=== PATIENT | female | born 1955 | race Caucasian/White ===

== ENCOUNTER → 2016-02-28 | Outpatient (CLI) | payer MEDICARE, OTHER ==
[~2016-02-28] MED LIST: CAR3125T OR; DIGO0.1262 OR; FURO40TA; IOHEXOL 350 MG/ML 100ML IJ ONE; LOSA25TA9 OR; Levothyroxine PO; POTA10TA75; SPIR25TA89 OR; WARF5TAB
[2016-02-28 10:40] VITALS: BP 109/87
[2016-02-28 11:10] VITALS: BP 133/90
== END | disposition home or self-care (01) ==
LOC: Rad HDHVI 10:28
PROVIDERS: ATTEND Internal Medicine Cardiovascular Disease
DX: R42 Dizziness and giddiness (principal)
CPT/HCPCS: 70496; 70498; 96374; G0463; Q9967

== ENCOUNTER → 2016-04-08 | Outpatient (CLI) | payer MEDICARE, OTHER ==
[~2016-04-08] MED LIST changes: -IOHEXOL 350 MG/ML 100ML IJ ONE
[2016-04-08 14:42] LABS: Basophils # (auto) 0 uL; Basophils % (auto) 0.6 % (0.0-2.0); Eosinophils # (auto) 0.1 uL; Eosinophils % (auto) 2.6 % (0.0-7.0); Hematocrit 40.2 % (36.0-46.0); Hemoglobin 13.3 g/dL (12.2-16.2); Lymphocytes # (auto) 1.4 uL; Lymphocytes % (auto) 25.9 % (10.0-50.0); Mean Corpuscular Hemoglobin 30.3 pg (28.0-32.0); Mean Corpuscular Volume 91.7 fL (80.0-100.0); Mean Platelet Volume 10.1 fL (7.4-10.4); Monocytes # (auto) 0.6 uL; Monocytes % (auto) 10.5 % (0.0-12.0); Neutrophils # (auto) 3.4 uL; Neutrophils % (auto) 60.4 % (37.0-80.0); Platelet Count (auto) 145 10^3/uL (140-450); Red Cell Distribution Width 14.3 % (11.6-16.0); SUSPECT VIEW TRANSMISSION; White Blood Cell 5.6 10^3/uL (4.4-10.8)
[2016-04-08 14:58] LABS: Albumin 4.3 g/dL (3.4-5.0); BUN/Creatinine Ratio 14.8; Bilirubin, Total 0.5 mg/dL (0.2-1.0); Calcium 9.9 mg/dL (8.5-10.1); Potassium 4.7 mmol/L (3.5-5.1); Total Protein 7.4 g/dL (6.4-8.2)
== END | disposition home or self-care (01) ==
LOC: LAB 14:20
DX: M06.9 Rheumatoid arthritis, unspecified (principal); M25.50 Pain in unspecified joint; D64.9 Anemia, unspecified; Z79.899 Other long term (current) drug therapy; I10 Essential (primary) hypertension
CPT/HCPCS: 36415; 80053; 85025; 85652; 86141

== ENCOUNTER → 2016-11-19 | Outpatient (CLI) | payer MEDICARE, OTHER ==
[2016-11-19 15:00] LABS: Basophils # (auto) 0 uL; Eosinophils # (auto) 0.1 uL; Eosinophils % (auto) 2.8 % (0.0-7.0); Hematocrit 39.6 % (36.0-46.0); Hemoglobin 13.4 g/dL (12.2-16.2); Lymphocytes # (auto) 1.2 uL; Lymphocytes % (auto) 28.4 % (10.0-50.0); Mean Corpuscular Hemoglobin 31.2 pg (28.0-32.0); Mean Corpuscular Hgb Conc. 33.8 g/dL (32.0-36.0); Mean Corpuscular Volume 92.4 fL (80.0-100.0); Mean Platelet Volume 10.2 fL (6.9-10.8); Monocytes # (auto) 0.6 uL; Monocytes % (auto) 12.7 % (0.0-12.0); Neutrophils # (auto) 2.4 uL; Neutrophils % (auto) 55.1 % (37.0-80.0); Nucleated Red Blood Cells % 0.1 %; Platelet Count (auto) 111 10^3/uL (140-450); Red Cell Distribution Width 14.1 % (11.8-14.3); White Blood Cell 4.4 10^3/uL (4.4-10.8)
[2016-11-19 15:20] LABS: Albumin 4.1 g/dL (3.4-5.0); BUN/Creatinine Ratio 17.4; Bilirubin, Total 0.5 mg/dL (0.2-1.0); Calcium 9.5 mg/dL (8.5-10.1); Potassium 4.5 mmol/L (3.5-5.1); Total Protein 7.3 g/dL (6.4-8.2)
== END | disposition home or self-care (01) ==
LOC: LAB 14:34
DX: I70.0 Atherosclerosis of aorta (principal); D64.9 Anemia, unspecified; M06.9 Rheumatoid arthritis, unspecified; I48.91 Unspecified atrial fibrillation; I11.0 Hypertensive heart disease with heart failure; I50.9 Heart failure, unspecified
CPT/HCPCS: 36415; 80053; 85025; 85652; 86141